=== PATIENT | male | born 1985 | race Native Hawaiian/Other Pacific Islander ===

== ENCOUNTER 2017-02-06 19:56 | Emergency (ER) | payer OTHER ==
[2017-02-06 20:11] VITALS: BP 113/80; O2SAT 98
[2017-02-06] MEDS ORDERED: Promethazine/Cod 6.25mg-10mg/5ml Syr UD PO STA (21:29)
--- NOTE | 2017-02-06 21:30 | C.PDOC ---
History Of Present Illness 31 yr old male w/o significant PMHx presents to the ER for evaluation of fever, body aches and dry cough since yesterday. Patient reports he has been taking antibiotics from [place] without any improvement. Patient denies severe headache, dizziness, lethargy, neck pain, drooling, dysphagia, chest pain, SOB, wheeizng, nausea, vomiting, abdominal pain, diarrhea, denies recent travle or sick contact. Ambulate to ED for evaluation, appears sick. Time Seen by Provider: 02/06/17 21:24 Chief Complaint (Nursing): Fever History Per: Patient History/Exam Limitations: no limitations Onset/Duration Of Symptoms: Days (1) Past Medical History Reviewed: Historical Data, Nursing Documentation, Vital Signs Vital Signs: Last Vital Signs Temp 99.4 F 02/06/17 21:30 Pulse 106 H 02/06/17 21:30 Resp 20 02/06/17 21:30 BP 113/80 02/06/17 20:06 Pulse Ox 98 02/06/17 21:48 Family History: States: No Known Family Hx - Social History Hx Alcohol Use: No Hx Substance Use: No - Immunization History Hx Tetanus Toxoid Vaccination: No Hx Influenza Vaccination: No Hx Pneumococcal Vaccination: No Review Of Systems Except As Marked, All Systems Reviewed And Found Negative. Constitutional: Positive for: Fever (Subjective), Other ((+) Body aches ) Cardiovascular: Negative for: Chest Pain Respiratory: Positive for: Cough (Dry). Negative for: Shortness of Breath Gastrointestinal: Negative for: Nausea, Vomiting, Abdominal Pain, Diarrhea Musculoskeletal: Negative for: Neck Pain Neurological: Negative for: Weakness, Numbness, Headache Physical Exam - Physical Exam Appears: Well, Non-toxic, No Acute Distress Skin: Normal Color, Warm, Dry, No Rash Eye(s): bilateral: Normal Inspection Ear(s): Bilateral: Normal Nose: Discharge (B/L nasal discharge, clear) Oral Mucosa: Moist, No Drooling Tongue: Normal Appearing Lips: Normal Appearing Throat: Erythema (mild pharyngeal erythema B/L), No Exudate, No Drooling Neck: Normal, Normal ROM, Supple, Other ((-) meningeal sign) Cardiovascular: Rhythm Regular Respiratory: Normal Breath Sounds, No Stridor, No Wheezing Gastrointestinal/Abdominal: Normal Exam, Soft, No Tenderness, No Distention, No Guarding Back: Normal Inspection, No CVA Tenderness Extremity: Normal ROM, No Pedal Edema, No Deformity Neurological/Psych: Oriented x3, Normal Speech ED Course And Treatment O2 Sat by Pulse Oximetry: 98 Pulse Ox Interpretation: Normal - Radiology CXR: Interpreted by Me, Viewed By Me CXR Interpretation: Yes: No Acute Disease Progress Note: On re-eavluation, pt is afebrile, hemodynamicaly stable. NOn- toxic. Tolerate Po well in ED. PulseOx 99% RA. ENT: no acute findings. Neck: (-) meningeal sign. Lungs: CTA B/L, BS equal B/L. ABd: benign. Neurologicaly intact. CXR review- normal study. Influenza A (-). Pt has clinical findings c /w bronchitis. Pt advised on course of ds. ref. to F/U with PMD in 2-3 days for re-eavl. return if any new changes. Medical Decision Making Medical Decision Making: PLAN: * CXR * Influenza * Motrin PO * Tylenol PO * Phenergan PO * Reglan PO * Tylenol PO Disposition Counseled Patient/Family Regarding: Studies Performed, Diagnosis, Need For Followup, Rx Given - Disposition Referrals: [facility] [Outside] Disposition: HOME/ ROUTINE Disposition Time: 22:05 Condition: STABLE Additional Instructions: Encourage fluids Take medication as prescribed Follow up with PMD in 2-3 days for re-evaluation. Return to ED if any worsening or new changes. Prescriptions: Promethazine/Codeine [Codeine/Promethazine 10 MG/5 Ml-6.25 MG/5 Ml] 10 ml PO Q8 #90 ml Azithromycin [Zithromax] 250 mg PO DAILY #4 tab Instructions: Acute Bronchitis (ED) - Clinical Impression Clinical Impression: Bronchitis - PA / CLOTH DRIER / Resident Statement MD/DO has reviewed & agrees with the documentation as recorded. - Scribe Statement The provider has reviewed the documentation as recorded by the Scribe Kathy Michele All medical record entries made by the Scribe were at my direction and personally dictated by me. I have reviewed the chart and agree that the record accurately reflects my personal performance of the history, physical exam, medical decision making, and the department course for this patient. I have also personally directed, reviewed, and agree with the discharge instructions and disposition.
[2017-02-06 21:31] VITALS: PULSE 106; RESP 20; TEMP 99.4
[2017-02-06] MEDS ORDERED: Promethazine/Cod 6.25mg-10mg/5ml Syr UD ONE (21:34)
--- NOTE | 2017-02-07 09:13 | RAD ---
HISTORY: Cough COMPARISON: 06/19/2016 TECHNIQUE: Chest PA and lateral FINDINGS: LUNGS: No active pulmonary disease. PLEURA: No significant pleural effusion identified. No pneumothorax apparent. CARDIOVASCULAR: Normal. OSSEOUS STRUCTURES: No significant abnormalities. VISUALIZED UPPER ABDOMEN: Normal. OTHER FINDINGS: None. IMPRESSION: No active disease.
== END 2017-02-06 22:39 | disposition home or self-care (01) ==
LOC: C.ER 19:56
DX: J40 Bronchitis, not specified as acute or chronic (principal)